=== PATIENT | male | born 1975 | race Caucasian/White ===

== ENCOUNTER → 2021-03-08 | Outpatient (CLI) | payer OTHER ==
--- NOTE | 2021-03-08 17:00 | CT ---
EXAMINATION TYPE: CT cervical spine wo con DATE OF EXAM: 03/08/2021 COMPARISON: MRI 11/09/2020 HISTORY: 45-year-old male M54.2, cervicalgia TECHNIQUE: Contiguous axial scanning of the cervical spine without IV contrast. Coronal and sagittal reconstructions performed. CT DLP: 743.9 mGycm Automated exposure control for dose reduction was used. FINDINGS: No previous cervical junction abnormality, predental space widening, or prevertebral soft tissue swel ling. Moderate disc/endplate degenerative change particularly at C4-C7 levels. Disc osteophyte complexes co ntribute to at least mild spinal canal stenosis at these levels. Assessment limited from C5 and below due to artifact from the patient's shoulders. Scattered uncovertebral joint and facet arthropathy especially mid to lower cervical spine. Alignment is maintained. At C4-C5, changes result in severe left and mild right neuroforaminal stenosis. At C5-C6, changes result in [id number] left neural foraminal stenosis. At C6/C7, changes result in severe bilateral neuroforaminal stenosis. No emphysematous change in the visualized upper lungs. IMPRESSION: 1. MODERATE SPONDYLOTIC CHANGE ESPECIALLY C4-C7 LEVELS. 2. AT LEAST MILD SPINAL CANAL STENOSES AT THESE LEVELS. ASSESSMENT OF THE SPINAL CANAL FROM C5 AND BE LOW IS LIMITED DUE TO ARTIFACT FROM THE PATIENT'S SHOULDERS. CANAL PATENCY WAS BETTER ASSESSED ON THE PATIENT'S MRI. 3. VARIABLE NEUROFORAMINAL STENOSES OUTLINED ABOVE, SEVERE ON THE LEFT AT C4-C5 AND SEVERE ON BOTH SIDES AT C6-C7. 4. COPD IN THE VISUALIZED UPPER LUNGS.
== END | disposition home or self-care (01) ==
LOC: RADCTMAIN 14:59
PROVIDERS: ATTEND Orthopaedic Surgery
DX: M48.02 Spinal stenosis, cervical region (principal); J44.9 Chronic obstructive pulmonary disease, unspecified
CPT/HCPCS: 72125

== ENCOUNTER → 2021-06-14 | Outpatient (CLI) | payer OTHER ==
[2021-06-14 18:51] LABS: Basophils # (A) 0.09 X 10*3/uL (0.00-0.10); Basophils % (A) 1.1 %; Eosinophils # (A) 0.27 X 10*3/uL (0.04-0.35); Eosinophils % (A) 3.2 %; HCT 48.3 % (39.6-50.0); HGB 15.6 g/dL (13.0-17.0); Immature Grans, Automated 0.4 %; Lymphocytes # (A) 3.03 X 10*3/uL (0.90-5.00); Lymphocytes % (A) 35.8 %; MCH 29.1 pg (27.0-32.0); MCHC 32.3 g/dL (32.0-37.0); MCV 89.9 fL (80.0-97.0); Mean Platelet Volume 9.9 fL (9.5-12.2); Monocytes # (A) 0.58 X 10*3/uL (0.20-1.00); Monocytes % (A) 6.8 %; NRBC Per 100 WBC 0 /100 WBCS (0.0-0.0); Neutrophils # (A) 4.47 X 10*3/uL (1.80-7.70); Neutrophils % (A) 52.7 %; Platelet Count 284 X 10*3/uL (140-440); RBC 5.37 X 10*6/uL (4.40-5.60); RDW 12.8 % (11.5-14.5); WBC 8.47 X 10*3/uL (4.50-10.00)
[2021-06-14 19:53] LABS: INR 0.94 (0.90-1.11); Prothrombin Time 10.7 sec (9.9-11.9)
[2021-06-14 23:01] LABS: African American GFR (CKD) 104.9 (60.0-200.0); Anion Gap 13.1 mmol/L (10.00-18.00); Calcium 9.1 mg/dL (8.7-10.3); Carbon Dioxide 20.9 mmol/L (20.0-27.5); Non-African American GFR(CKD) 90.5 (60.0-200.0); Potassium 4.3 mmol/L (3.5-5.5)
== END ==
LOC: LABPAT 10:23
PROVIDERS: ATTEND Orthopaedic Surgery
DX: Z01.812 Encounter for preprocedural laboratory examination (principal); M48.02 Spinal stenosis, cervical region
CPT/HCPCS: 80048; 85025; 85610

== ENCOUNTER 2021-06-20 10:56 | Observation (INO) | payer OTHER ==
[2021-06-18 08:15] VITALS: BMI 32.1
[~2021-06-20 10:56] MED LIST: ACETAMINOPHEN TAB 500 MG TAB PO PRN; GABAPENTIN 300 MG CAP PO PRN; HYDROmorphone 0.5 MG/0.5 ML SYRINGE IVP PRN; MELOXICAM 7.5 MG TAB PO PRN; MIDAZOLAM 2 MG/2 ML VIAL IV PRN; ONDANSETRON 4 MG/2 ML VIAL IVP PRN
[2021-06-20] MEDS: LACTATED RINGERS 1,000 ML IV SCH (11:24)
[2021-06-20] MEDS ORDERED: LIDOCAINE 1% (10MG/ML) FOR IV START INTRADERMA ONE ×2 (11:25)
[2021-06-20] MEDS ORDERED: ONDANSETRON 4 MG/2 ML VIAL ONE (11:42)
--- NOTE | 2021-06-20 12:03 | P.HPOR ---
History of Present Illness H&P Date: 06/20/21 Chief Complaint: Neck pain, UE radiculopathy Date of :[birth year] R14Age: 45 year Height: 6'2" Weight: 250 lbs BMI: 32.10 kg/m2 Occupation: Construction VAS: 9 CHIEF COMPLAINT: Cervical pain and bilateral upper extremity radiculopathy HISTORY: Xrays Brought imaging from outside facility which were reviewed Trauma or injury Yes, cannot recall acute event but there was an injury 5 years ago. Work-Related No Pain description Sharp Location diffuse Activity Modification yes, unable to perform bending/lifting/twisting motions regarding his neck. Hand Dominance right DOI: 5 years ago initially (no specific date) then 2 years ago had an increase in pain that has remained constant since. DOS: None. TREATMENTS COMPLETED: 6 weeks of PT completed? No Physician directed home exercise completed? Yes, has trialed and found that it exacerbated his symptoms so he did discontinue them. Medications yes List: Ibuprofen 600mg without improvements. Alternative interventions Chiropractic?: yes, with no improvements. Brace: No Injections Yes (for carpal tunnel about the right hand) also hand 1 JONES in the neck with no relief. Cervical JONES with no improvements. How many? 1 of each Did they help? No RFA: No SUBJECTIVE: Patient presents to the office for a pre-op review of the planned procedure. Since the time of the last appointment the patient the patient denies any improvements to his symptoms. He reports increasing cervical pain as well as a continued loss of unemployment inspector strength and daily functionality. Patient notes increased frequency of dropping things and cannot unemployment inspector most things with significant strength at this time. Overall his daily functionality is very limited at this time. As for treatments, the patient denies any improvements to his modalities and has failed to improve with all treatments trialed thus far. All risks and benefits of the procedure were discussed and the patient wishes to proceed. He denies any bladder or bowel retention/incontinence, no perineal numbness/tingling, and ambulates independently. HPI: Patient last presented to the office on 04/29/2021 for a recheck of his cervical spine. Since the time of the last appointment the patient notes that his symptoms have continued to persist. He reports that his symptoms have continued to impede on his daily activities and he is unable to complete many of his daily activities due to the severity of his symptoms. Patient does report a continued loss in unemployment inspector strength regarding bilateral unemployment inspector strength as well, right worse than left. Overall his symptomology has not changed notably since the time of the last appointment. Otherwise he denies having trialed any new treatment modalities since the time of the last appointment. Patient denies any bladder or bowel issues, no perineal numbness/tingling, and ambulates without the use of any aides. Mr. Olguin last presented to the office on 03/04/2021 for an evaluation of his cervical spine. The patient presents to the office on a referral from Dr. Pimentel for neck pain that has been ongoing for 5 years. Patient reports sustaining an injury 5 years ago initially that was the onset of the pain but cannot recall a specific mechanism of injury. He noted that the pain did wane after the initial injury but the had an increase in pain again 2 years ago with no acute event to indicate a causal reason of the increase in his pain. Since this recent increase his symptoms have remained constant. Regarding his symptoms, the patient reports pain about the posterior side of the neck that radiates into the bilateral upper extremities (right worse than left). In addition to the pain, he does note numbness and tingling about the thumb and index finger of the right upper distal extremity. Due to this the patient notes a loss of unemployment inspector strength. The patient's symptoms are made worse with any bending/twisting motion regarding the neck. This results in a sharp increase in his neck pain. As for the upper extremities he states that these symptoms are constant are there are no exacerbating factors. He notes that he has not had feeling in the right index finger for two years. As for treatments, he notes that he has had a cervical JONES and a right hand carpal tunnel injection, both done through Dr. Pimentel's office. Patient denies any improvements to his sy mptoms with this. Otherwise he has completed a cervical MRI on 11/09/2020. Regarding medications he does take Ibuprofen PRN with no improvements. Aleks denies having completed any other modalities at this time. Patient denies any bladder or bowel issues, no perineal numbness/tingling, and presents to the office without the use of any ambulatory aides. The patients' past social, medical, family, surgical history, as well as review of systems, have been reviewed. Please refer to the Neurosurgery History and Physical form that has been scanned in to our electronic medical record system. 14 points review of systems completed and as stated in HPI, all other systems reviewed are negative. Review of Systems 14 points review of systems completed and as stated in HPI, all other systems reviewed are negative. 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), tingling iman arms and hands History of Any Multi-Drug Resistant Organisms: None Reported Past Surgical History: Appendectomy, Orthopedic Surgery Additional Past Surgical History / Comment(s): left knee arthroscopy x 2, bone spur shaved from left great toe, rt elbow tendon surgery, left shoulder rotator cuff, left shoulder torn bicep repair, lower jaw surgery- plates and screws, 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), pilonidal cyst, PICC line/later removed Past Anesthesia/Blood Transfusion Reactions: Previous Problems w/ Anesthesia Additional Past Anesthesia/Blood Transfusion Reaction / Comment(s): diff breathing when waking up after one surgery Smoking Status: Current every day smoker - Past Family History Mother Family Medical History: Deep Vein Thrombosis (DVT) Medications and Allergies Home Medications Medication Instructions Recorded Confirmed Type Acetaminophen [Tylenol Extra 500 mg PO DIRECTED PRN 05/29/21 06/20/21 History Strength] Atorvastatin [Lipitor] 20 mg PO HS 05/29/21 06/20/21 History Citalopram Hydrobromide [CeleXA] 10 mg PO HS 05/29/21 06/20/21 History Motrin(Dose Unknown) 1 tab PO DIRECTED PRN 05/29/21 06/20/21 History Gabapentin [Neurontin] 300 mg PO TID PRN 06/18/21 06/20/21 History Allergies Allergy/AdvReac Type Severity Reaction Status Date / Time amoxicillin Allergy Abdominal Verified 06/20/21 11:23 Pain, vomiting, diarrhea Physical Examination Osteopathic Statement: *. No significant issues noted on an osteopathic structural exam other than those noted in the History and Physical/Consult. PHYSICAL EXAMINATION: General: Awake, alert, appropriate for age, in no acute distress. HEENT: No unusual neck masses around region of lateral neck triangle, thyroid, supraclavicular groove Extremities: Skin warm and dry without acute lesions, coloration, temperature, skin intact, no tenderness or erythema Integument: Hairy patches: Absent Dorsal skin dimples: Absent Cafe au lait spots: Absent Surgical incisions: No Palpation: Please see Pain drawing on Intake sheet for further detail. Midline spinal tenderness: mild E6 Paralumbar tenderness: No E6 Parathoracic tenderness: No E6 Buttocks tenderness: No E6 Special findings: No POSTURAL and MUSCULO-SKELETAL EVALUATION: Coronal Balance: NEUTRAL Recumbent testing: Patient is able to lay flat on back Sagittal Balance: NEUTRAL Shoulder Profile: LEVEL Pelvic Girdle: LEVEL Neck ROM: RESTRICTED Lumbar ROM: UNRESTRICTED Shoulder ROM: Symmetrical Hip ROM: Symmetrical Knee ROM: Symmetrical Hands: Normal appearance, symmetrical Feet: Normal appearance, Symmetrical VASCULAR STATUS : LEFT RIGHT Wrist Pulses INTACT INTACT Pedal Pulses (Dors. pedis & post.tibialis) INTACT INTACT Color NORMAL NORMAL Edema Absent Absent NEUROLOGIC EXAMINATION: Mental Status:Awake and alert, fully oriented, with normal attention, concentration and memory, and fluent, appropriate speech. Cranial Nerves: I: Olfactory not tested. II: Visual acuity normal, no visual field deficit noted with confrontation. III,IV: Normal pupillary reflexes & intact extraocular movements without nystagmus. V,: Intact symmetrical facial sensation. VII: Intact symmetrical facial motor movement VIII: Hearing intact. IX,X: Intact gag, swallow, & normal voice. XI: Sternocleidomastoid, trapezius function intact. XII: Tongue midline with normal movements. L'hermitte's Sign: Negative / absent Spurling'Sign: Absent bilaterally. Cubital percussion test: Absent bilaterally. Orly-Tinel sign - Carpal region: Absent bilaterally. Straight Leg Raising: Absent bilaterally. Crossed straight leg raise: negative O8 MOTOR EXAM (0-5/5, N/T) STRENGTH RIGHT LEFT Shoulder Abd (not part of the LUIS score) 5 5 Elbow Flexors 4+ 4+ Elbow Extensor 4+ 4+ Wrist Dorsiflexors 5 5 Finger Abductor 5 4+ Pump Station Operator 4+ 4+ Hip Flexor (Not part of LUIS Motor score) 5 5 Knee Flexor 5 5 Knee Extensor 5 5 Ankle dorsiflexor 5 5 Ankle plantarflexion 5 5 Extensor hallucis 5 5 REFLEXES(0-4/2, NT) RIGHT LEFT Upper Extremities 1 2 Lower Extremities 2 2 Pathological Reflexes RIGHT LEFT Conde's Absent Absent Clonus Absent Absent Babinski Absent Absent # Indicates mechanical impairment Muscle appearance: Symmetrical, without signs of atrophy or dystrophy. Sensory system (0-4, N/T) Test type RU RICCO RL LL Joint-Position 2 2 2 2 Vibration 2 2 2 2 Pain & LT sense 2 2 2 2 Dermatomal Deficit: C6 C6-7 None None Gait and Functional Evaluation: Ambulatory aids: Independent Romberg's test: Intact bilaterally Toe heel walk / heel-toe walk intact while maintaining satisfactory balance? yes Squatting/straightening w/o assistance to a min of 60 degree knee flexion? yes Single leg stance: intact Trendelenburg sign negative bilaterally Hand and finger dexterity intact bilaterally? yes Disdiadochokinesis examination negative bilaterally? yes Results RADIOGRAPHIC STUDIES: Xray from 03/04/2021 of the lumbar spine and pelvis demonstrates: Images demonstrate severe spondylosis from C4-6 with disc collapse, osteophyte formation anterior and posterior, flattening of the cervical lordosis with segmental kyphosis noted at C5-6 due to disc height loss, degenerative changes as well. There is very mild facet arthrosis noted. OC and C1-2 appear stable. Flex/ex films demonstrate instability of C5-6 with increased kyphotic angulation and anterior listhesis grade I with flexion which reduces on extension. No fracture noted. From an outside facility is reviewed. This demonstrates large chronic HNP at C5-7 with disc dessication, spondylosis and moderate to severe stenosis. There is moderat stenosis causing cord contact at c5-6 due to these bulges and there is moderate to severe stenosis at C6-7 secondary to this. There is severe foraminal stenosis at both levels bilaterally due to osteophyte formation as well as disc herniations. There is a smaller BB disc bulge at C4-5 which is noted as well causing moderate central and b/l foraminal stenosis . There is kyphotic deformity as noted above, however listhesis is reduced on this supine film. NO other fracture or lesions noted. Assessment and Plan Assessment: It was my pleasure to have seen and examined Aleks. I reviewed the patient's clinical syndrome, physical findings, and imaging studies during the appointment today. It is my impression that the patient has a diagnosis of. 1. C4-C7 stenosis severe 2.B/L UE radiculopathy 3. RUE numbness 4. C4-C7 spondylosis I outlined the natural course history without intervention and various interventional options. Plan: Based on my findings I suggest the following course of action: 1.The patient has continued to fail to improve with all conservative treatments trialed thus far. We discussed at length the different options for the patient. after several attempts to have a procedure approved that would potentially limit his surgical exposure, decrease his risk of adjacent segment disease and address all of his issues the insurance company continues to deny a disc replacement at C4 5 with fusion below. At this time the patient is miserable and continues to have severe symptoms in his upper extremities as well as his neck and he has stated that he would rather deal with the potential of breakdown in the future rather than deal with this pain continuously and have to deal with the insurance company. This is reasonable and we will resubmit for the below procedure. C4-7 anterior cervical disectomy and fusion The indications, risks, benefits, and alternatives to surgery were discussed with the patient and family at length. Specifically (but not limited to) the risks of infection, stiffness, recurrence of symptoms, need for revision surgery, local numbness, neurovascular injury, and blood clots were discussed. The patient's questions were answered. The decision to proceed was made. Consent will be obtained for the procedure. Spine Surgery Risk Review Aleks Olguin is presenting for evaluation of cervical pain and bilateral upper extremity radiculopathy. It was my pleasure to have seen and examined Aleks Olguin. In our visit today we have had a chance to go over subjective complaints, physical examination findings and treatments including the natural course history without intervention and various interventional options. The patients imaging demonstrates: Images demonstrate severe spondylosis from C4-6 with disc collapse, osteophyte formation anterior and posterior, flattening of the cervical lordosis with segmental kyphosis noted at C5-6 due to disc height loss, degenerative changes as well. There is very mild facet arthrosis noted. OC and C1-2 appear stable. Flex/ex films demonstrate instability of C5-6 with increased kyphotic angulation and anterior listhesis grade I with flexion which reduces on extension. No fracture noted. From an outside facility is reviewed. This demonstrates large chronic HNP at C5-7 with disc dessication, spondylosis and moderate to severe stenosis. There is moderat stenosis causing cord contact at c5-6 due to these bulges and there is moderate to severe stenosis at C6-7 secondary to this. There is severe foraminal stenosis at both levels bilaterally due to osteophyte formation as well as disc herniations. There is a smaller BB disc bulge at C4-5 which is noted as well causing moderate central and b/l foraminal stenosis . There is kyphotic deformity as noted above, however listhesis is reduced on this supine film. NO other fracture or lesions noted. On physical exam, Aleks Olguin demonstrates bilateral upper extremity radiculopathy with progressive weakness. Theres is significant loss in ROM of the cervical spine. I have explained to the patient that as their condition progresses it will cause further neurological deficits and eventual paralysis. Based on the patients imaging, physical exam, and the rapid progression and disabling nature of their symptoms, at this time I recommend surgery in the form or a: C4-C5 Total Disc Replacement and C5-C7 Anterior Decompression with Cervical Fusion . I discussed the risk and benefits of this procedure at length with Aleks Olguin. The patient and his significant other agreed to considered pursuing the procedure abovementioned. Prior to surgery, she should follow up with her PCP (Cardio, ID, IM etc) for clearance. Questions were invited and answered, and the patient wishes to proceed as outlined below. Currently, I am recommendin. C4-C7 Anterior Decompression with Cervical Fusion 2.Follow up with PCP for surgical clearance 3.Review of surgical risks and benefits as well as an educational packet on the proposed surgical procedure. Risks: All surgical procedures come with inherent risks, including those related to positioning, anesthesia, intraoperative findings, and postoperative complications. It is important to understand that surgery does not come with any guarantee of a successful outcome as complications and adverse events are always possible. The patient was given a handout in office today discussing the surgical procedure and risks associated with the intervention, both of which were discussed with the patient. These risks include but are not limited to the following: * Experiencing same, different or even worse symptoms in back, neck, arms, or legs compared to before surgery. Requiring further surgery or other forms of treatment presently or at some time in the future at same or other levels of the intended spine surgery. On an extreme but fortunately relatively rare basis severe complication such as blindness, stroke, heart attack, temporary and/or permanent nerve injury, paralysis, coma, or may occur, sometimes without known explanation. Surgical complications may include but are not limited to risk of infection, fluid accumulation in the surgical dissection site, including a seroma or hematoma, that requires additional surgery, wound drainage, bleeding, new numbness or weakness, vision changes/loss, spinal fluid leakage, non-healing and/or infected incision, headaches, difficulty or inability to swallow, hoarseness, hemopneumothorax, pneumothorax, impotence, retrograde ejaculation, vaginal dryness; injury to nerves, spinal cord, blood vessels, lymphatics or other vital organs (i.e., bowel injury, injury to the great vessels); heterotopic bone formation; complications related to the hardware such as screws, rods, cages including misplaced hardware, device failure, instrumentation at the wrong spine level, hardware fracture/breakage, or hardware loosening; vertebral failure of the spinal column above or below the newly placed hardware; retained surgical instrumentations or devices and the need for further surgery. * Medical risks of the planned spine surgery include but are not limited to generalized Infections to the whole body or local areas outside of the surgical site (sepsis), heart attack, bleeding, anaphylaxis, meningitis, seizure, epilepsy, hearing loss, burn akins, laceration of the head or other areas of the body, bruising, hypersensitivity of the skin, bladder over distension; allergic reaction; shoulder injury related to positioning; fat, blood and air clots to other areas of the body like heart, lungs, brain; failure of internal organs such as lungs, kidneys, liver and excessive bleeding. If blood transfusions are necessary, note that transfusions may cause intolerance reactions such as anaphylaxis or other complex reactions. Despite best efforts, the results of spine surgery might not heal in terms of bone, soft tissues such as skin, fascia, ligaments, and joints. Additionally, in order to achieve best possible results, spine surgery may be carried out beyond the initially planned levels and involve decompression, fusion including insertion of hardware at levels other than the original intended area of surgical interest change some portions of the procedure in order to ensure the best possible outcomes. With spine surgery and spinal fusion, there are different off label uses of instrumentation (devices, implants and hardware) as well as biological substances (bone morphogenic proteins, demineralized bone matrix) as well as using extra bone from allograft sources (i.e. cadaver bone) or autograft (iliac crest bone, ribs, or the spine itself). The patient has been given information about these practices and their inherent risks and benefits. [facility] is an educational center that serves as a training facility for neurosurgical and orthopedic spine residents and fellows. Residents are physicians who are completing their surgical intensive training following medical school. They assist in the operating room with direct supervision of the attending surgeons. Parlier are surgeons who have completed their training and eligible for board certification. They have opted for an elective year of more specialized training in their field. They assist in the operating room under the supervision of the attending surgeons. Physician assistants are [facility] trained surgical providers who function in the outpatient, inpatient, and operating room setting under the direct supervision of the attending surgeon. [facility] has multiple operating rooms with single and overlapping rooms running daily. They currently function under the required guidelines as produced by the [facility] with regards to the overlapping rooms and will continue to comply with changes to this policy as they occur. The requirements include and are complied with as follows: (1) the critical portions of the overlapping rooms will not occur at the same time, (2) the attending physician will be physically present during the critical portions of the procedure and immediately available during the entire case, and (3) a back-up attending is designated should the primary attending not be immediately available. The patient has had a chance to review all the listed information, has been given print outs detailing this information, and has had all his/her questions answered to their satisfaction. It was my pleasure to have seen and examined Aleks Olguin. In our visit today we have had a chance to go over my understanding of our patient's current condition, the natural course history without intervention and various interventional options. Questions were invited and answered, and the patient wishes to proceed as outlined above. I have seen and examined the patient for 25 minutes and we have spent more than 50% of the time in repeat and detailed counseling about the patient's condition, its natural course history with out and as much as can be predicted with surgery and re-review of various surgical treatment options. In conclusion, Aleks Olguin and his spouse requested we proceed with the above suggested surgery and are willing to accept risks and limitations of the suggested surgery as nature of the disease process and our best attempts at treatment for the condition. Thank you again for allowing us to be part of your patient's care. Please don't hesitate to contact me if you have any further questions. Signed and authenticated by: [employer] P:\\\\ppart\\\\[id number]\\\\[id number] \\d [facility]im[facility] Sp[facility] [address] [address]
[2021-06-20] MEDS ORDERED: LIDOCAINE 1% INJ 10MG/ML (20 ML MDV) ONE (13:04)
[2021-06-20] MEDS ORDERED: ROCURONIUM 10 MG/ML (5 ML VIAL) IV ONE (13:04)
[2021-06-20] MEDS ORDERED: fentaNYL (PF) 50 MCG/ML 2 ML AMP ONE (13:04)
[2021-06-20] MEDS ORDERED: SUCCINYLCHOLINE CHLORIDE 100 MG/5 ML SYR IV ONE (13:04)
[2021-06-20] MEDS ORDERED: ePHEDrine 50 MG/ML 1 ML VIAL ONE (13:04)
[2021-06-20] MEDS ORDERED: MIDAZOLAM 2 MG/2 ML VIAL ONE (13:04)
[2021-06-20] MEDS ORDERED: KETAMINE 10 MG/ML 20 ML VIAL ONE (13:04)
[2021-06-20] MEDS ORDERED: PHENYLEPHRINE-0.9% NACL SYG 1,000 MCG/10 ML SYRINGE ONE (13:04)
[2021-06-20] MEDS ORDERED: PROPOFOL 10 MG/ML 20 ML VIAL IV ONE (13:04)
[2021-06-20] MEDS ORDERED: BUPIVACAIN-EPI 0.25%-1:200,000 30 ML VIAL SQ ONE (13:09)
[2021-06-20] MEDS ORDERED: GELATIN SPONGE,ABSORB (LARGE) 1 EACH SPONGE TOPICAL ONE (13:09)
[2021-06-20] MEDS ORDERED: THROMBIN (RECOMBINANT) 5,000 UNIT VIAL TOPICAL ONE (13:09)
[2021-06-20] MEDS ORDERED: ceFAZolin 3,000 MG in SODIUM CHLORIDE 0.9% IRRIGATIO 3,000 ML IRRIGATION ONE (13:58)
[2021-06-20] MEDS ORDERED: LACTATED RINGERS 1,000 ML IV ONE (15:30)
[2021-06-20] MEDS ORDERED: NA PHOS,M-B/NA PHOS,DI-BA 133 ML ENEMA RECTAL PRN (16:33)
[2021-06-20] MEDS ORDERED: HYDROmorphone 0.5 MG/0.5 ML SYRINGE IVP PRN (16:33)
[2021-06-20] MEDS ORDERED: ONDANSETRON 4 MG/2 ML VIAL IVP PRN (16:33)
[2021-06-20] MEDS ORDERED: bisacodyL 10 MG SUPP RECTAL PRN (16:33)
[2021-06-20] MEDS ORDERED: MAG HYDROX/AL HYDROX/SIMETH 30 ML CUP PO PRN (16:33)
[2021-06-20] MEDS ORDERED: MAGNESIUM HYDROXIDE 2,400 MG/10 ML CUP PO PRN (16:33)
[2021-06-20] MEDS ORDERED: SENNOSIDES-DOCUSATE SODIUM 1 EACH TAB PO PRN (16:33)
[2021-06-20] MEDS ORDERED: HYDROcodone/APAP 7.5-325MG 1 EACH TAB PO PRN (16:38)
[2021-06-20] MEDS: CYCLOBENZAPRINE 5 MG TAB PO PRN (19:10)
[2021-06-20] MEDS: HYDROmorphone 1 MG/ML 1 ML SYRINGE IVP PRN ×2 (19:13→22:09)
[2021-06-20] MEDS: HYDROcodone/APAP 10-325MG 1 EACH TAB PO PRN (20:40)
[2021-06-20] MEDS: GABAPENTIN 300 MG CAP PO PRN (21:36)
[2021-06-21] MEDS: HYDROcodone/APAP 10-325MG 1 EACH TAB PO PRN ×3 (01:48→12:53)
[2021-06-21] MEDS: CYCLOBENZAPRINE 5 MG TAB PO PRN (07:24)
--- NOTE | 2021-06-21 07:44 | FL ---
Fluoroscopy History: ANTERIOR CERVICAL FUSION ANTERIOR CERVICAL FUSION. 8 IMAGES SENT TO PACS. [address] HULL
--- NOTE | 2021-06-21 07:49 | XR ---
EXAMINATION TYPE: XR cervical spine 1V DATE OF EXAM: 06/20/2021 CLINICAL HISTORY: Intraoperative localization TECHNIQUE: Crosstable lateral view of the cervical spine intraoperatively COMPARISON: None. FINDINGS: Localizer device is noted at the C5 level. IMPRESSION: As above
--- NOTE | 2021-06-21 09:29 | CT ---
EXAMINATION TYPE: CT cervical spine wo con DATE OF EXAM: 06/21/2021 COMPARISON: CT dated 03/08/2021 HISTORY: S/P Cervical Fusion CT DLP: 652.5 mGycm Automated exposure control for dose reduction was used. TECHNIQUE: CT scan of the cervical spine is obtained without contrast, axial images are obtained, sa gittal and coronal reformatted images are also reviewed. FINDINGS: Interval anterior spinal fusion from C4 to C7 using a plate and 8 screws. No evidence of prosthesis b reak. Disc prosthesis is seen at C4-5, C5-6 and C6-7 levels. No significant anterolisthesis or retrol isthesis. No definite vertebral body collapse or acute displaced fracture. Acute postsurgical changes with soft tissue emphysema and reactive fluid mainly seen along the right side of the neck. Surgical drain is also seen at the operative bed. Spinal canal stenosis is still ap preciated at C4-5, C5-6 and C6-7 levels with posterior osteophytosis. Persistent severe left C4-5, mo derate left C5-6 and large right C6-7 osteophytosis causing severe right C6-7 neuroforaminal stenosis . Left C7-T1 facet osteoarthropathy. Slightly enlarged nasopharyngeal and palatine tonsils, please co rrelate clinically. Prevertebral fluid is also noted, likely related to acute postoperative changes. Fluid density seen a long the right posterolateral aspect of the trachea and the right lateral aspect of the esophagus martha n to the upper chest. It is not possible to exclude subtle injury at that location in the background of the acute postoperative changes. Bilateral apical pulmonary paraseptal emphysematous changes and p eripheral reticulations. IMPRESSION: Acute postsurgical changes as detailed above.
[2021-06-21 09:30] LABS: Basophils # (A) 0.08 X 10*3/uL (0.00-0.10); Basophils % (A) 0.6 %; Eosinophils % (A) 1.5 %; HCT 46.4 % (39.6-50.0); HGB 14.7 g/dL (13.0-17.0); Immature Grans, Automated 0.4 %; Lymphocytes # (A) 2.82 X 10*3/uL (0.90-5.00); Lymphocytes % (A) 20.8 %; MCH 28.6 pg (27.0-32.0); MCHC 31.7 g/dL (32.0-37.0); MCV 90.3 fL (80.0-97.0); Mean Platelet Volume 9.8 fL (9.5-12.2); Monocytes # (A) 0.76 X 10*3/uL (0.20-1.00); Monocytes % (A) 5.6 %; NRBC Per 100 WBC 0 /100 WBCS (0.0-0.0); Neutrophils # (A) 9.67 X 10*3/uL (1.80-7.70); Neutrophils % (A) 71.1 %; Platelet Count 259 X 10*3/uL (140-440); RBC 5.14 X 10*6/uL (4.40-5.60); RDW 13.2 % (11.5-14.5); WBC 13.58 X 10*3/uL (4.50-10.00)
[2021-06-21 10:08] LABS: African American GFR (CKD) 108.7 (60.0-200.0); Anion Gap 13.1 mmol/L (10.00-18.00); BUN/Creat Ratio 11.64 Ratio (12.00-20.00); Blood Urea Nitrogen 11.3 mg/dL (9.0-27.0); Calcium 8.6 mg/dL (8.7-10.3); Carbon Dioxide 21.7 mmol/L (20.0-27.5); Non-African American GFR(CKD) 93.8 (60.0-200.0); Potassium 4.1 mmol/L (3.5-5.5)
[2021-06-21] MEDS: LACTATED RINGERS 1,000 ML IV SCH (10:21)
[2021-06-21] MEDS: GABAPENTIN 300 MG CAP PO PRN (10:23)
[2021-06-21 14:33] LABS: Appearance,Urine Clear (Clear); Bilirubin,Urine Negative (Negative); Blood,Urine Negative (Negative); Color,Urine Light Yellow; Glucose,Urine (UA) Negative (Negative); Ketones,Urine Negative (Negative); Leukocyte Esterase,Urine Trace (Negative); Nitrite,Urine Negative (Negative); PH, Urine 6.5 (5.0-8.0); Protein,Urine Negative (Negative); RBC,Urine 1 /hpf (0-5); Specific Gravity,Urine 1.007 (1.001-1.035); Urobilinogen,Urine <2.0 mg/dL (<2.0); WBC,Urine 5 /hpf (0-5)
--- NOTE | 2021-06-21 14:36 | P.DS ---
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 They underwent appropriate preoperative care and were willing to undergo the intended procedure. They underwent a successful C4 to 7 ACDF, were recovered appropriately and sent to the floor. While on the floor they worked with physical therapy, occupational therapy and nursing to enhance their recovery experience. Their pain was well controlled through their stay and they were started on appropriate medications, DVT ppx modalities, activity and dietary needs. Daily labs were monitored closely, and transfusions were only used when necessary. Medicine as well as other consulting services have made their input and have helped with our team approach and multidisciplinary care. PT milestones have been met and passed and they have made the recommendation of home for this patient and treating providers agree with this care path. The patient will be discharged home with appropriate medications, instructions and follow-up information and in stable condition. Patient Condition at Discharge: Stable Plan - Discharge Summary Discharge Rx Participant: Yes New Discharge Prescriptions: New Cyclobenzaprine [Flexeril] 10 mg PO HS PRN #40 tab PRN Reason: Spasms HYDROcodone/APAP 7.5-325MG [[place] 7.5-325] 1 tab PO Q4-6H PRN #56 tab PRN Reason: Pain Sennosides/Docusate Sodium [Senna Plus 8.6-50 mg Softgel] 1 each PO BID PRN #20 capsule PRN Reason: Constipation cefaDROXiL [Duricef] 500 mg PO Q12HR #10 cap Gabapentin 300 mg PO TID #90 cap No Action Atorvastatin [Lipitor] 20 mg PO HS Acetaminophen [Tylenol Extra Strength] 500 mg PO DIRECTED PRN PRN Reason: Pain Gabapentin [Neurontin] 300 mg PO TID PRN PRN Reason: Pain Citalopram Hydrobromide [CeleXA] 10 mg PO HS Motrin(Dose Unknown) 1 tab PO DIRECTED PRN PRN Reason: Pain Discharge Medication List Acetaminophen [Tylenol Extra Strength] 500 mg PO DIRECTED PRN 05/29/21 [History] Atorvastatin [Lipitor] 20 mg PO HS 05/29/21 [History] Citalopram Hydrobromide [CeleXA] 10 mg PO HS 05/29/21 [History] Motrin(Dose Unknown) 1 tab PO DIRECTED PRN 05/29/21 [History] Gabapentin [Neurontin] 300 mg PO TID PRN 06/18/21 [History] Cyclobenzaprine [Flexeril] 10 mg PO HS PRN #40 tab 06/21/21 [Rx] Gabapentin 300 mg PO TID #90 cap 06/21/21 [Rx] HYDROcodone/APAP 7.5-325MG [[place] 7.5-325] 1 tab PO Q4-6H PRN #56 tab 06/21/21 [Rx] Sennosides/Docusate Sodium [Senna Plus 8.6-50 mg Softgel] 1 each PO BID PRN #20 capsule 06/21/21 [Rx] cefaDROXiL [Duricef] 500 mg PO Q12HR #10 cap 06/21/21 [Rx] Follow up Appointment(s)/Referral(s): Michael Haile DO [Doctor of Osteopathic Medicine] - 2 Weeks Activity/Diet/Wound Care/Special Instructions: Spine Discharge and Recovery Instructions Date of Surgery: 06/20/2021 Diagnosis: C4 to 7 spondylosis with stenosis Procedure: C4 to 7 ACDF Medications: A list All medication refills should be obtained through your primary care doctor or your clinic spine surgeon. Please discuss prescription refills at your follow up appointment. Do not call the hospital for medication refills. Dressing: Leave your dressing in place for a total of 3 days post operatively. Then you may remove your dressing and leave open to air. Keep the area clean and if not able to keep area clean, then cover with sterile gauze and tape. Showering: You may shower 3 days after your procedure allowing soap and water to run over incision. Do not scrub. Do not soak. Blot dry. Brace: Wear soft collar when up and about riding in cars and on long walks or during activity may take breaks while seated or lying still Follow up: Please confirm a follow up appointment with your surgeon 2 weeks post operatively. Please make an appointment to follow up with your PCP in 1-2 weeks after surgery for evaluation 3 phase, 3-week plan POST OP WEEKS 1-3 1. Lifting/carrying/pushing/pulling limited to less than 5 pounds. 2. Do not sit for longer than 15 minutes at one time. Get up and walk around. Prolonged sitting is NOT advised. If you lay down, see if you can tolerate laying down on you front (belly side) 3. Walk for periods of 15 minutes = 1 mile but no longer; do it multiple times times each day. 4.Ice your low back after activity. POST OP WEEKS 3-6 1. Lifting limited to less than 20 pounds. 2. Do not sit for longer than 30 minutes at a time. Frequently change positions. Use a sit-to stand workstation or take frequent breaks from sitting if you have returned to work. 3. Walk for 30 minutes each day. If possible, do these three or more times a day POST OP WEEKS 6+ At your 6-week appointment we will give you a physical therapy referral to focus on a core stabilization and strengthening program. You should also work on leg & buttock strengthening, hamstring & quadriceps stretching, and continue a low impact aerobic activity program such as swimming, walking, or riding a stationary bicycle. During the initial 6 weeks after your surgery, you are at the highest risk of re-injuring your spine. You should generally avoid BLTs (bending, lifting and twisting combination motions) and follow the above guidelines to reduce the chance of reinjury. You can anticipate post op appointments in our office at approximately 3 weeks and 6 weeks after your surgery. INCISION CARE: If your incision is not draining you do NOT need to cover it with a dressing. Keep your incision clean, dry and intact. In most cases, we apply skin glue, arthur or sutures to the incision at the time of surgery. This will be like a crust or have the appearance of a scab and will fall off in time on its own. The stitches or arthur need to be removed at 3 weeks post op appointment. You may begin to shower 3 days after surgery (this allows the glue to howell well). However, please avoid scrubbing the incision site or peeling off any of the skin glue. This will ensure optimal healing of your incision. Also, during this time avoid soaking the incision area in water - this includes swimming pools, hot tubs or baths. No ointments, lotions or oils on the incision until your surgeon allows. Leave arthur, sutures or glue in place. Neurological dysfunction that comes on suddenly can also be a sign of a stroke. Below some common symptoms of a stroke are listed: B - balance difficulty such as sudden onset walking or leaning to one side - NEW E - eye problem such as sudden double vision or trouble seeing on one side - NEW F - Facial weakness or numbness on one side - NEW A - Arm or leg weakness or numbness on one side - NEW S - Slurred speech or difficulty with word finding - NEW T - Time is BRAIN! Call 911 as soon as you recognize these symptoms Diet: Consume a regular diet rich in vegetables and lean protein such as chicken or fish. You should consume in a ratio of approximately 20% fats|40% carbohydrates|40%protein. Vegetables, sweet potatoes, brown rice or quinoa are examples of good carbohydrates. Chips, white bread, cookies and sweets/sugar a re examples of bad carbohydrates. Limit your bad carbs, go wild with good carbs. "Life's Simple 7" Guidelines as per [place] [employer] These will help you reclaim your life after surgery and motorboat mechanic helper in your recovery, keeping in mind your restrictions. (1) Get Active. Physical activity can help people lose weight, control high blood pressure and cholesterol, feel emotionally better, and sleep better. (2) Control Cholesterol. Avoid a diet high in saturated fat, trans fat, & cholesterol. Limit whole milk & cream, ice cream, butter, egg yolks, processed meats (like sausage and hot dogs), and fatty meats. Choose healthy foods that are low in saturated fat, trans fat and cholesterol which include: Fruits and vegetables, fiber rich grain products (like whole grain pasta and brown rice), lean meat such as chicken, fish, nuts, seeds, and legumes. (3) Eat Better. Eat small portions. Shop at the grocery with a list and do not stray from it. Tips for a healthy diet include: Limit sodium intake to less than 1500mg daily, avoid prepackaged, processed, and fast foods, choose a diet rich in fruits, vegetables, and whole grain, high fiber foods, and limit saturated & cholesterol in your diet. (4) Manage Blood Pressure. If you have high blood pressure, you should have a cuff at home so that you can check your blood pressure regularly. Be sure you have a good cuff. An arm one is generally better than a wrist one. Bring the cuff to a doctor's appointment to validate that the measurements that your cuff are taking are accurate. Take your blood pressure twice daily when you are sitting down and relaxing. Record the numbers in a log and bring this log with you to your doctors' appointments. (5) Lose Weight if your BMI is above 25. A healthy BMI is between 19-25. To calculate Your BMI, you may use a Standard BMI Calculator on the NIH BMI website: <www.nhlbi.nih.gov/guidelines/obesity/BMI/bmicalc.htm>. Weigh oneself daily. If you are overweight, set a goal to lose weight. A pound a week loss if needed is a good target. (6) Reduce Blood Sugar. Limit foods and liquids with "added sugars." (Added sugars include sucrose, fructose, glucose, maltose, dextrose, high fructose corn syrup, corn syrup, concentrated fruit juice and honey). (7) Stop Smoking. If you smoke, quitting smoking is one of the best things that you can do for your health. Smoking increases your risk of heart attack, stroke, and peripheral vascular disease, which is a build-up of plaque in your arteries. Please discard all the cigarettes and lighters in your house. Have a plan for what you will do when you have the urge to smoke. Direct and second- hand smoke shortens your life as well as the lives of your family, friends and others around you. For your health and the health of those around you, please consider quitting! Proper Bending Body Mechanics: Maintain a wide stance with one foot slightly in front of the other. Keep your back straight. Bend utilizing the strength in your hips and knees. Do not bend at the waist. Maintain the lifted object at your waist-level close to your body. Avoid lifting weight that causes immediately pain or pain anywhere in the body afterwards. Smoking/Nicotine If there was ever one thing that you could do to increase your overall health, decrease your risk of cardiovascular problems by about 39% the second you make the choice, it is to STOP SMOKING. Your body's most instant gratification is the second you stop smoking. We have all heard the studies, read the articles but it is true, smoking is extremely bad for your overall health, and moreover it is detrimental to your bone health. Nicotine, IN ANY FORM, kills bone cells, prevents your body from healing fractures, and significantly prolongs healing after surgery. In spine surgery specifically, it increases your risk of not healing your bones to create a fusion and increases your risk of having a revision surgery due to this up to 60%. I know it is hard. I know it feels impossible. But there are ways. Take control of your life. We are here to help you through it. And when you are ready, ask us and we can direct you to help if you desire. Use the START Plan to Quit Smoking (please visit the Helpguide.org website listed below for more information): S = Set a quit date. Choose a date within the next 2 weeks, so you have enough time to prepare without losing your motivation to quit. If you mainly smoke at work, quit on the weekend, so you have a few days to adjust to the change. T = Tell family, friends, and co-workers that you plan to quit. Let your friends and family in on your plan to quit smoking and tell them you need their support and encouragement to stop. Look for a quit laney who wants to stop smoking as well. You can help each other get through the rough times. A = Anticipate and plan for the challenges you'll face while quitting. Most people who begin smoking again do so within the first 3 months. You can help yourself make it through by preparing ahead for common challenges, such as nicotine withdrawal and cigarette cravings. R = Remove cigarettes and other tobacco products from your home, car, and work. Throw away all your cigarettes (no emergency pack!), lighters, ashtrays, and matches. Wash your clothes and freshen up anything that smells like smoke. Shampoo your car, clean your drapes and carpet, and steam your furniture. T = Talk to your doctor about getting help to quit. Your doctor can prescribe medication to help with withdrawal and suggest other alternatives. If you can't see a doctor, you can get many products over the counter at your local pharmacy or grocery store, including the nicotine patch, nicotine lozenges, and nicotine gum. Resources for Quitting Smoking: <https://www.[place].gov/documents/[facility]/Q uit_Tobacco_Resources_for_patients_313480_7.pdf> Supplementation: Take recommended dosages of Vitamin D and Calcium to help fortify your bones and help them to heal. See your health maintenance packet for dosages and recommended levels. DVT/VTE prophylaxis: You will be given compression stockings from the hospital. Wear these daily for the first two weeks after surgery. You may take them off at night. You may be prescribed a medication to help thin your blood. Take this as directed. If you are not prescribed this medication, early and frequent ambulation has been shown to be the best prophylaxis to deep vein thrombosis and sequelae related to this event. Discharge Disposition: HOME SELF-CARE
[2021-06-21 14:49] VITALS: BP 168/96; PULSE 100; RESP 18; TEMP 99.3
--- NOTE | 2021-06-21 15:12 | CONS ---
CONSULTATION REASON FOR CONSULTATION: Advice regarding hyperlipidemia requested by Orthopedic Surgery. HISTORY OF PRESENT ILLNESS: This 45-year-old gentleman with past medical history of GERD, hyperlipidemia, DJD being followed by Dr. Reynolds in the outpatient setting, underwent cervical diskectomy and fusion. No chest pain. No palpitations. No fever. No cough. PAST MEDICAL HISTORY: GERD, hyperlipidemia. HOME MEDICATIONS: Reviewed include Motrin, gabapentin. Doses reviewed. ALLERGIES: AMOXICILLIN. FAMILY HISTORY: DVT in the family. SOCIAL HISTORY: Smoking. REVIEW OF SYSTEMS: A 14-point review is negative except as mentioned earlier. PHYSICAL EXAMINATION: Pulse 97, blood pressure 140/94, respirations 16. HEENT: Conjunctivae normal. Oral mucosa moist. NECK is status post surgery. CARDIOVASCULAR system: S1, S2 muffled. RESPIRATION: Breath sounds diminished in the bases. No rhonchi. No crackles. ABDOMEN: Soft. Nontender. NERVOUS SYSTEM: No focal deficits. SKIN: No ulcers, no rashes and no bleeding. JOINTS: No active deforming arthropathy. LYMPHATICS: No lymph nodes palpable in the neck, axillae or groin. LABS: Reviewed. ASSESSMENT: 1. Status post cervical diskectomy and fusion for cervical degenerative joint disease. 2. Mild hyponatremia. 3. Gastroesophageal reflux disease. 4. Hyperlipidemia. RECOMMENDATIONS AND DISCUSSION: This 45-year-old gentleman presented after surgery. At this time, I recommend to continue current medications. Resume the home medications and DVT prophylaxis. Incentive spirometry. The patient may be asked to follow with Dr. Reynolds closely after discharge. Further recommendations to follow. MMODL / IJN: [id number] /
--- NOTE | 2021-06-21 15:43 | P.PN ---
Subjective Progress Note Date: 06/21/21 Principal diagnosis: Cervical stenosis Patient seen and examined. Patient is currently resting in bed, denies pain at this time. Patient states he is tolerating regular diet, denies any difficulty with swallowing. FLETCHER drain was removed, dressing changed, and soft collar in jamia ce. Patient states that the numbness to the right index finger has improved along with other previous symptoms. Schneider catheter has been removed patient voiding without difficulty. Patient is anticipating discharge today. Objective - Vital Signs Vital signs: Vital Signs Temp 99.3 F 06/21/21 13:27 Pulse 100 06/21/21 13:27 Resp 18 06/21/21 13:27 BP 168/96 06/21/21 13:27 Pulse Ox 90 L 06/21/21 13:27 Intake & Output 06/20/21 06/21/21 06/21/21 18:59 06:59 18:59 Intake Total 2950 100 Output Total 460 655 Balance 2490 -555 Weight 109 kg 109 kg Intake: IV 2950 Intake, IV Titration 100 Amount ceFAZolin 2 gm In Sodium 100 Chloride 0.9% 50 ml @ 100 mls/hr IVPB ONCE PRN Rx# :[id number] Output: Drainage 30 Right Anterior Neck 30 Urine 410 625 Estimated Blood Loss 50 Other: Voiding Method Indwelling Catheter Toilet - Exam Physical Examination General: The patient is awake and alert, in no acute distress Skin: Skin is warm and dry with no obvious rashes or lesions. Hairy patches absent, no dorsal skin dimples, no cafe au lait spots. Surgical incision at the cervical region. Eye: Pupils are equal, round and reactive to light, extra-ocular movements are intact; there is normal conjunctiva bilaterally. Neck: The neck is supple, there is slight tenderness and ROM is limited due to surgical procedure. Cardiovascular: There is a regular rate and rhythm. No murmur, rub or gallop is appreciated. Respiratory: Lungs are clear to auscultation, respirations are non-labored, breath sounds are equal. Gastrointestinal: Soft, non-distended, non-tender abdomen. Back: There is no tenderness to palpation in the midline, paralumbar, parathoracic or buttocks region. There is no obvious deformity. Musculoskeletal: ROM limited secondary to pain and stiffness from surgical procedure. Shoulder abduction 4/5, elbow flexors 4/5, wrist dorsiflexors 4/5. finger abductor 4/5, emergency vehicle operator 4/5, hip flexor 5/5, knee flexor 5/5, ankle dorsiflexor 5/5, ankle plantarflexion 5/5 and extensor hallucis 5/5. Neurological: CN 2-12 intact. There are no obvious motor or sensory deficits. Movement and coordination equal and intact. Sensory exam to light touch intact C5-T1 and intact from L2-S1. Reflexes 2/4 in bilateral upper and lower extremities. Negative Hoffmans, babinski, and clonus signs. Psychiatric: Cooperative, appropriate mood & affect, normal judgment. - Labs CBC & Chem 7: 06/21/21 05:54 06/21/21 05:54 Labs: Abnormal Lab Results - Last 24 Hours (Table) 06/21/21 06/21/21 06/21/21 Range/Units 05:54 05:54 14:00 WBC 13.58 H (4.50-10.00) X 10*3/uL MCHC 31.7 L (32.0-37.0) g/dL Immature Gran # 0.05 H (0.00-0.04) X 10*3/uL Neutrophils # 9.67 H (1.80-7.70) X 10*3/uL Sodium 133 L (135-145) mmol/L BUN/Creatinine Ratio 11.64 L (12.00-20.00) Ratio Calcium 8.6 L (8.7-10.3) mg/dL Ur Leukocyte Esterase Trace H (Negative) Assessment and Plan Assessment: Status post cervical decompression and fusion Plan: I reviewed and discussed the case with my attending Dr. Haile, he has had a chance to review the chart and films and we have decided to proceed as outlined below. Plan: -Appreciate mining consultant and team management. -Activity: Ambulate QID, OOB all meals, up and about, limit lifting bending twisting to less than 5 lbs. -Daily PT/OT, increase ambulation strength and balance. -Soft Cervical when up and about, not needed in bed or chair -Pain control: Adequate at this time -Meds: reviewed -GI ppx: senna, Miralax -Hygiene: Shower today. Maintain dressing clean and dry. -Drains: DC'd -Encourage IS 10x/hr -Dispo: Home later today 06/21/20 I have personally seen and examined the patient, performed the documentation and the assessment and plan as written. Number of minutes spent on the visit: [20 ].
[2021-06-21] MEDS ORDERED: HEPARIN SODIUM,PORCINE/PF 5,000 UNIT/0.5 ML SYRINGE SQ SCH (16:00)
[2021-06-21] MEDS ORDERED: CITALOPRAM HYDROBROMIDE 10 MG TAB PO SCH (21:00)
[2021-06-21] MEDS ORDERED: ATORVASTATIN 20 MG TAB PO SCH (21:00)
--- NOTE | 2021-07-02 08:48 | P.OP ---
Date of Procedure: 06/20/21 Preoperative Diagnosis: 1. C4-7 spondylosis severe 2. C4-7 stenosis central and foraminal moderate to severe 3. UE radiculopathy 4. UE weakness 5. Mechanical neck pain Postoperative Diagnosis: 1. C4-7 spondylosis severe 2. C4-7 stenosis central and foraminal moderate to severe 3. UE radiculopathy 4. UE weakness 5. Mechanical neck pain Procedure(s) Performed: 1. Anterior Right sided Coffey-Galvez approach to the spine 2. C4-5 anterior interbody fusion (77835) 3. C5-6 Anterior interbody fusion (42271) 4. C6-7 anterior interbody fusion (52680) 5. C4-5; C5-6; C6-7 insertion of biomechanical device ([id number]) 6. C4-7 placement of separate nonintegrated anterior plate fixation (70053) 7. Use of intraoperative neuromonitoring 8. Interpretation of intraoperative fluoroscopy less than 1 hour (10006) Implants: Udall -Artie cages x 3 -Strawn Plate x3 level -Bio 4 -local Autograft Anesthesia: PAULINA Surgeon: Michael Haile Distribution Specialist #1: Tracy Garces (Was present for the entire case and assisted with positioning dissection interbody fusion and plate fixation closure and dressing) Estimated Blood Loss (ml): 50 IV fluids (ml): 1,000 Urine output (ml): 200 Pathology: none sent Condition: stable Disposition: PACU Indications for Procedure: Aleks Olguin is presenting for evaluation of cervical pain and bilateral upper extremity radiculopathy. It was my pleasure to have seen and examined Aleks Olguin. In our visit today we have had a chance to go over subjective complaints, physical examination findings and treatments including the natural course history without intervention and various interventional options. The patients imaging demonstrates: Images demonstrate severe spondylosis from C4-6 with disc collapse, osteophyte formation anterior and posterior, flattening of the cervical lordosis with segmental kyphosis noted at C5-6 due to disc height loss, degenerative changes as well. There is very mild facet arthrosis noted. OC and C1-2 appear stable. Flex/ex films demonstrate instability of C5-6 with increased kyphotic angulation and anterior listhesis grade I with flexion which reduces on extension. No fracture noted. From an outside facility is reviewed. This demonstrates large chronic HNP at C5-7 with disc dessication, spondylosis and moderate to severe stenosis. There is moderat stenosis causing cord contact at c5-6 due to these bulges and there is moderate to severe stenosis at C6-7 secondary to this. There is severe foraminal stenosis at both levels bilaterally due to osteophyte formation as well as disc herniations. There is a smaller BB disc bulge at C4-5 which is noted as well causing moderate central and b/l foraminal stenosis . There is kyphotic deformity as noted above, however listhesis is reduced on this supine film. NO other fracture or lesions noted. On physical exam, Aleks Sharif demonstrates bilateral upper extremity radiculopathy with progressive weakness. Theres is significant loss in ROM of the cervical spine. I have explained to the patient that as their condition progresses it will cause further neurological deficits and eventual paralysis. Based on the patients imaging, physical exam, and the rapid progression and disabling nature of their symptoms, at this time I recommend surgery in the form or a: C4-C5 Total Disc Replacement and C5-C7 Anterior Decompression with Cervical Fusion . I discussed the risk and benefits of this procedure at length with Aleks Olguin. The patient and his significant other agreed to considered pursuing the procedure abovementioned. Prior to surgery, she should follow up with her PCP (Cardio, ID, IM etc) for clearance. Questions were invited and answered, and the patient wishes to proceed as outlined below. Currently, I am recommendin. C4-C7 Anterior Decompression with Cervical Fusion 2.Follow up with PCP for surgical clearance 3.Review of surgical risks and benefits as well as an educational packet on the proposed surgical procedure. Description of Procedure: The patient was seen and examined in the preoperative area. All preoperative protocols were followed. Informed consent was obtained risks and benefits of the procedure were discussed at length. Risks including bleeding infection damage to the surrounding tissue and risk of reoperation were discussed with the patient. Risk of anesthesia up to and including was a discussed with the patient. These are outlined in the risk review. They were willing to accept these risks and all of the risks of surgery. The patient was given a weight- based dose of antibiotics in the form of 2 g Ancef. The patient was seen and evaluated by the anesthesia team who deemed them fit for surgery. The site was marked, the patient was willing to proceed with the procedure. The patient was transferred to the operative suite by the Department of anesthesia. They were then drifted off to sleep by the department anesthesia and GETA was performed. The patient tolerated this well. Schneider catheter was placed by nursing staff, atraumatically. Once confirmation of lines and ventilation the patient was transferred to a supine flattop [place] table very carefully. A shoulder roll was placed and the patient's head was placed on a bump. [employer] tongs were placed in 10 pounds of traction was applied. Shoulders were gently taped down arms were placed at the side thumbs up well- padded. All bony prominences including wrists, elbows, axilla, chest, hips, and thighs, and feet were padded very well. Special attention was paid to the genitalia and these were padded accordingly. SCDs were placed on bilateral lower extremities and were connected. Arms were well padded and placed at the side well padded thumbs up. Once in position, again we confirmed good ventilation capabilities and that lines were running appropriately. The patient's anterior cervical spine was then exposed. 1010s were placed outlining the incision site. Standard alcohol was used to clean the incision site and allowed to dry. C-arm was used to biomark the patient and confirm level for incision which was marked with a skin marker. Operative briefing was performed with all teams and everyone in agreement to proceed. The patient was then prepped and draped in a normal sterile fashion. Timeout was then performed and all parties were in agreement with the procedure to be performed. 4 cm transverse incision was made over the previously about marked area of the anterior cervical spine. Careful dissection was performed and a standard Coffey- Lowery approach to the spine was performed. The interval was developed underneath the platysma which was split longitudinally. We then identified the sternocleidomastoid and the medial strap muscles and developed a plane between these. Took special care to make sure the carotid sheath was lateral and protected. Then identify the anterior longitudinal ligament and took care to protect the midline structures. Once this was identified a blunt probe was used to marked the levels on lateral fluoroscopic imaging which confirmed our levels. We then proceeded with interbody fusion at C4-C5. Anderson pin was placed in the C4 distractor was placed and the retractors were placed and secured. The microscope was then brought in for visualization purposes. We then under microscopic dissection performed discectomy anteriorly of C4-C5 completely this performed using Jose Luis Ankit as well as curettes. The endplates were scraped of any cartilage and removed. We performed minimal burring of the endplates we did bur the posterior inferior endplate of C4 to remove the osteophyte that had formed in this position as well as the disc osteophyte complex in this area. Once the disc was completely removed we resected the PLL. First a 60 up-biting curette was placed to access the epidural space appeared within remove the PLL using Kerrison rongeurs. Bilateral foraminotomies were performed under direct visualization which ensured good decompression at this level. We then proceeded with sizing of the level once the size was selected the cage was selected which was appropriate size and lordosis with impact his cage with autograft by L4 was impacted into place under lateral fluoroscopic imaging. Once in good position the refrigeration service technician was removed and distraction was removed. The distraction pin was then removed from C4 and bone wax placed in its void. We then turned our attention to C5-C6 Anderson pin was placed in the C6 under lateral fluoroscopic imaging then performed careful distraction at C5-C6. Anterior osteophytes removed with Jose Luis Ankit the discectomy was performed using Jose Luis Ankit and curettes endplates were scraped of any cartilage and minimal burring was performed of the endplates. We then performed burring of the posterior inferior endplate of C5 to remove any osteophytes in this area. We then resected the PLL in similar fashion and performed bilateral foraminotomies. Meticulous hemostasis was performed. We then sized and selected cage for this level as well the cage was then impacted in place under lateral fluoroscopic guidance after being packed with bile for an autograft once was in good position refrigeration service technician was removed and distraction was removed. Distraction pin was then removed from C5 and bone wax placed void. We then turned our attention to the see 67 interspace Anderson pin was placed in the C7 under lateral fluoroscopic guidance and careful distraction was placed. We then performed discectomy and anterior osteophytectomy with Jose Luis Ankit and curettes the endplates were scraped of any cartilage and minimal burring of the endplates was performed. We then performed burring of the inferior posterior endplate of C6 to remove any osteophyte in this area PLL was then resected using Kerrison rongeurs and bilateral foraminotomies were performed using Kerrison rongeurs. Good decompression was obtained and meticulous hemostasis performed. We then sized and selected a cage for this level cage was then packed with bile for an autograft was impacted into place under lateral fluoroscopic guidance once in good position refrigeration service technician was removed Anderson pins were removed and bone wax placed void. We then sized and lordosis to under lateral fluoroscopic guidance an anterior plate for this area once it was sized it was pinned in the position in AP fluoroscopic image showed good placement of the plate we then drilled and placed screws under lateral fluoroscopic guidance first into C7 to anchor this area. We then drilled C5 and C6 and placed these screws followed by C4. All screws were then final tightened and locked into position. Final fluoroscopic imaging in AP and lateral showed good reduction of lordosis good height uatsdin as well as good placement of hardware. We then copiously irrigated the wound with normal sterile saline meticulous hemostasis again performed with inspected the area and there was no damage to any surrounding tissues. We then placed Surgicel deep within the wound. Deep drain was placed out a separate incision and sewed into position. We then performed layered closure first in the platysmal layer with 3-0 Vicryl followed by the subcu tissue with 3-0 Vicryl followed by the subcuticular tissue with a running 40 strata fix. The wound edges approximated very well was then cleaned and sterilely dressed with exofin and tape and glue. Once the glue dry Telfa and Tegaderm were placed over this as well as a drain sponge. The patient was transferred back to their hospital bed atraumatically. J[employer] tongs were removed the pin holes were exposed and inspected there was no drainage and no bleeding. Drain continued to hold suction and were in good position. Patient was then awakened and extubated by the department of anesthesia having tolerated the procedure very well with no complications. They were transferred to the postoperative care unit in stable condition.
== END 2021-06-21 16:17 | disposition home or self-care (01) ==
LOC: OR 10:56 → EDSTATUS 12:00 → 4SSUR 16:36 → OR 06-21 09:27 → 4SSUR 06-21 09:27
PROVIDERS: ADMIT Orthopaedic Surgery; ATTEND Orthopaedic Surgery
DX: M48.02 Spinal stenosis, cervical region (principal); M54.10 Radiculopathy, site unspecified; M47.812 Spondylosis without myelopathy or radiculopathy, cervical region; M25.78 Osteophyte, vertebrae; E87.1 Hypo-osmolality and hyponatremia; E78.5 Hyperlipidemia, unspecified; M19.90 Unspecified osteoarthritis, unspecified site; M51.9 Unspecified thoracic, thoracolumbar and lumbosacral intervertebral disc disorder; F17.210 Nicotine dependence, cigarettes, uncomplicated; M77.9 Enthesopathy, unspecified; G56.01 Carpal tunnel syndrome, right upper limb; L05.91 Pilonidal cyst without abscess; M40.209 Unspecified kyphosis, site unspecified; K21.9 Gastro-esophageal reflux disease without esophagitis; E66.9 Obesity, unspecified; Z68.32 Body mass index [BMI] 32.0-32.9, adult; Z88.0 Allergy status to penicillin; Z79.899 Other long term (current) drug therapy; Z71.6 Tobacco abuse counseling; Z86.69 Personal history of other diseases of the nervous system and sense organs; Z82.49 Family history of ischemic heart disease and other diseases of the circulatory system
CPT/HCPCS: 22551; 22552 ×3; 22853 ×4; 20937; 22846; 97161; 86900; 86901; 80048; 85025; 86850; 81001; 72020; 72125; G0378; L0120; C1713; C1762; J2250; J0690 ×2; J2405; J2001; J3010; J1170 ×2; J2370; J0330; J2704

== ENCOUNTER 2021-10-10 16:15 | Emergency (ER) | payer OTHER ==
[2021-10-10 16:25] VITALS: BP 159/106; PULSE 90; RESP 16; TEMP 98.5
[2021-10-10] MEDS ORDERED: KETOROLAC 15 MG/ML 1 ML VIAL IM STA (16:35)
[2021-10-10] MEDS ORDERED: ORPHENADRINE 30 MG/ML 2 ML VIAL IM STA (16:35)
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
== END 2021-10-10 18:35 | disposition home or self-care (01) ==
LOC: EC 16:15
DX: S16.1XXA Strain of muscle, fascia and tendon at neck level, initial encounter (principal); E78.5 Hyperlipidemia, unspecified; F17.200 Nicotine dependence, unspecified, uncomplicated; Z88.0 Allergy status to penicillin; V89.2XXA Person injured in unspecified motor-vehicle accident, traffic, initial encounter
CPT/HCPCS: 72050; 99284; 96372; J2360; J1885

== ENCOUNTER 2022-12-05 20:58 | Emergency (ER) | payer BC, OTHER ==
[2022-12-05] MEDS ORDERED: KETOROLAC 15 MG/ML 1 ML VIAL IM STA (21:39)
--- NOTE | 2022-12-05 21:51 | XR ---
EXAMINATION TYPE: XR knee complete LT DATE OF EXAM: 12/05/2022 9:47 PM INDICATION: Patient age:Male; 47 years old; Reason for study: pain; PHH. COMPARISON: None. TECHNIQUE: The Left knee(s) was examined in Frontal, lateral and oblique projections. FINDINGS: No evidence of any acute osseous pathology, soft tissue swelling is noted. There is a sma ll joint effusion felt to be present on lateral view. Tricompartmental osteophyte formation involving the femoral condyles, tibial plateau and patella. Mi ld joint space narrowing. IMPRESSION: 1. No acute osseous pathology. 2. Mild tricompartmental osteoarthritic changes. 3. Small joint effusion.
[2022-12-05] MEDS ORDERED: HYDROmorphone 0.5 MG/0.5 ML SYRINGE IM STA (22:23)
--- NOTE | 2022-12-05 22:27 | ED ---
Lower Extremity Injury HPI - General Chief Complaint: Extremity Injury, Lower Stated Complaint: Knee Injury Time Seen by Provider: 12/05/22 21:38 Source: patient Mode of arrival: wheelchair Limitations: no limitations - History of Present Illness Initial Comments: Patient is a 47-year-old male who presents to the emergency department for left knee pain. Patient has intermittent left knee pain for the past 2 months with worsening today after he twisted his knee while walking. Patient heard a pop. He has pain in the inside of his left knee with swelling. Pain refractory to Tylenol and Motrin. No numbness or tingling. No fever or chills. Patient has never had evaluation of the knee. - Related Data Home Medications Medication Instructions Recorded Confirmed Atorvastatin [Lipitor] 20 mg PO HS 05/29/21 10/10/21 Citalopram Hydrobromide [CeleXA] 10 mg PO HS 05/29/21 10/10/21 Previous Rx's Medication Instructions Recorded Cyclobenzaprine [Flexeril] 10 mg PO TID PRN #15 tab 10/10/21 Ibuprofen [Motrin] 800 mg PO Q8HR PRN #30 tab 10/10/21 HYDROcodone/APAP 7.5-325MG [[place] 1 tab PO Q4HR PRN #18 tab 12/05/22 7.5-325] Allergies Allergy/AdvReac Type Severity Reaction Status Date / Time amoxicillin Allergy Abdominal Verified 12/05/22 21:19 Pain, vomiting, diarrhea Review of Systems ROS Statement: Those systems with pertinent positive or pertinent negative responses have been documented in the HPI. ROS Other: All systems not noted in ROS Statement are negative. 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), tingling iman arms and hands History of Any Multi-Drug Resistant Organisms: None Reported Past Surgical History: Appendectomy, Orthopedic Surgery Additional Past Surgical History / Comment(s): left knee arthroscopy x 2, bone spur shaved from left great toe, rt elbow tendon surgery, left shoulder rotator cuff, left shoulder torn bicep repair, lower jaw surgery- plates and screws, 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), pilonidal cyst, PICC l ine/later removed, cervical fusion june 2021 Past Anesthesia/Blood Transfusion Reactions: Previous Problems w/ Anesthesia Additional Past Anesthesia/Blood Transfusion Reaction / Comment(s): diff breathing when waking up after one surgery Past Psychological History: No Psychological Hx Reported Smoking Status: Current every day smoker Past Alcohol Use History: None Reported Past Drug Use History: None Reported - Past Family History Mother Family Medical History: Deep Vein Thrombosis (DVT) General Exam Limitations: no limitations General appearance: alert Respiratory exam: Present: normal lung sounds bilaterally. Absent: respiratory distress, wheezes, rales, rhonchi, stridor Cardiovascular Exam: Present: regular rate, normal rhythm, normal heart sounds. Absent: systolic murmur, diastolic murmur, rubs, gallop, clicks Left Upper Leg exam: Present: normal inspection, full ROM. Absent: tenderness, swelling Knee exam: Present: tenderness (Medial), effusion, pain/laxity with valgus. Absent: normal inspection, abrasion, ecchymosis, deformity, crepitus, dislocation, erythema Lower Leg exam: Present: normal inspection, full ROM. Absent: tenderness, swelling Neurovascular tendon exam: Present: no vascular compromise Neurological exam: Present: alert Psychiatric exam: Present: normal affect, normal mood Skin exam: Present: warm, dry, intact, normal color. Absent: rash Course Vital Signs 12/05/22 12/05/22 21:10 22:55 Temperature 98.3 F 98.4 F Pulse Rate 94 83 Respiratory 20 16 Rate Blood Pressure 159/98 138/97 O2 Sat by Pulse 98 99 Oximetry Medical Decision Making - Medical Decision Making Was pt. sent in by a medical professional or institution (, PA, FABRICATING MACHINE OPERATOR, urgent care, hospital, or correction...) When possible be specific @ -No Did you speak to anyone other than the patient for history (EMS, parent, family, police, friend...)? What history was obtained from this source @ -No Did you review nursing and triage notes (agree or disagree)? Why? @ -I reviewed and agree with nursing and triage notes Were old charts reviewed (outside hosp., previous admission, EMS record, old EKG, old radiological studies, urgent care reports/EKG's, correction records)? Report findings @ -No old charts were reviewed Differential Diagnosis (chest pain, altered mental status, abdominal pain women, abdominal pain men, vaginal bleeding, weakness, fever, dyspnea, syncope, headache, dizziness, GI bleed, back pain, seizure, CVA, palpatations, mental health)? @ -Knee flexion, knee sprain, contusion. This list is not meant to be all- inclusive EKG interpreted by me (3pts min.). @ -As above X-rays interpreted by me (1pt min.). @ -Small joint effusion no fracture or dislocation CT interpreted by me (1pt min.). @ -None done U/S interpreted by me (1pt. min.). @ -None done What testing was considered but not performed or refused? (CT, X-rays, U/S, labs)? Why? @ -None What meds were considered but not given or refused? Why? @ -None Did you discuss the management of the patient with other professionals (professionals i.e. , PA, FABRICATING MACHINE OPERATOR, lab, RT, psych nurse, social sciences lecturer, office service coordinator, teacher, police or patrol park officer, onsite case manager)? Give summary @ -No Was smoking cessation discussed for >3mins.? @ -No Was critical care preformed (if so, how long)? @ -No Were there social determinants of health that impacted care today? How? (Homelessness, low income, unemployed, alcoholism, drug addiction, transportation, low edu. Level, literacy, decrease access to med. care, intermediate, rehab)? @ -No Was there de-escalation of care discussed even if they declined (Discuss DNR or withdrawal of care, Hospice)? DNR status @ -No What co-morbidities impacted this encounter? (DM, HTN, Smoking, COPD, CAD, Cancer, CVA, ARF, Chemo, Hep., AIDS, mental health diagnosis, sleep apnea, morbid obesity)? @ -None Was patient admitted / discharged? Hospital course, mention meds given and route, prescriptions, significant lab abnormalities, going to OR and other pertinent info. @ -Discharged in knee immobilizer for knee sprain. Patient declined crutches he does have appointment with reproduction specialist on Thursday for MRI. Patient discharged with [place] for severe pain. Discussed sedating properties. Undiagnosed new problem with uncertain prognosis? @ -No Drug Therapy requiring intensive monitoring for toxicity (Heparin, Nitro, Insulin, Cardizem)? @ -No Were any procedures done? @ -No Diagnosis/symptom? @ -left knee sprain Acute, or Chronic, or Acute on Chronic? @-acute Uncomplicated (without systemic symptoms) or Complicated (systemic symptoms)? @ -uncomplicated Side effects of treatment? @ -No Exacerbation, Progression, or Severe Exacerbation? @ -No Poses a threat to life or bodily function? How? (Chest pain, [place], [place], pneumonia, PE, COPD, DKA, ARF, appy, cholecystitis, CVA, Diverticulitis, Homicidal, Suicidal, threat to staff... and all critical care pts) @ -No Dr. Schofield is my attending Disposition Clinical Impression: Left knee sprain Disposition: HOME SELF-CARE Condition: Good Instructions (If sedation given, give patient instructions): Knee Sprain (ED) Additional Instructions: Keep knee immobilizer on and avoid bearing weight until orthopedic clearance. Alternate Tylenol and Motrin every 3-4 hours for pain. Save [place] for severe pain. Do not take Tylenol and [place] together. Follow-up with reproduction specialist next week as planned. Return to the emergency department if you experience new, concerning, or worsening symptoms. Prescriptions: HYDROcodone/APAP 7.5-325MG [[place] 7.5-325] 1 tab PO Q4HR PRN #18 tab PRN Reason: Pain Is patient prescribed a controlled substance at d/c from ED?: No Referrals: Kuldip Reynolds MD [Primary Care Provider] - 1-2 days
[2022-12-05 23:01] VITALS: BP 138/97; PULSE 83; RESP 16; TEMP 98.4
== END 2022-12-05 23:01 | disposition home or self-care (01) ==
LOC: EC 20:58
DX: S83.92XA Sprain of unspecified site of left knee, initial encounter (principal); E78.5 Hyperlipidemia, unspecified; M17.12 Unilateral primary osteoarthritis, left knee; F17.200 Nicotine dependence, unspecified, uncomplicated; Z88.0 Allergy status to penicillin; Z79.899 Other long term (current) drug therapy; X50.9XXA Other and unspecified overexertion or strenuous movements or postures, initial encounter; Y93.01 Activity, walking, marching and hiking
CPT/HCPCS: 73562; 99283; 96372 ×2; L1830; J1885; J1170